=== PATIENT | female | born 1995 | race African-American/Black ===

== ENCOUNTER 2017-02-27 21:47 | Emergency (ER) | payer MEDICAID ==
[~2017-02-27] VITALS: Ht 162.6 cm; Wt 68.0 kg
[2017-02-28 02:58] VITALS: BP 110/60
[2017-02-28 04:53] LABS: CLARITY URINE CLEAR (CLEAR); COLOR URINE YELLOW (YELLOW); GLUCOSE URINE NEGATIVE (NEGATIVE); KETONES URINE NEGATIVE (NEGATIVE); LEUKOCYTE ESTERASE URINE 2+ (NEGATIVE); NITRITE URINE NEGATIVE (NEGATIVE); OCCULT BLOOD URINE NEGATIVE (NEGATIVE); PH URINE 5.5 (4.5-8.0); PROTEIN URINE NEGATIVE (NEGATIVE); SPECIFIC GRAVITY URINE 1.029 (1.005-1.030)
== END 2017-02-28 06:00 | disposition home or self-care (01) ==
LOC: EDSEX 21:47 → ER 02-28 04:01
DX: N39.0 Urinary tract infection, site not specified (principal); F12.90 Cannabis use, unspecified, uncomplicated; Z88.2 Allergy status to sulfonamides; Z88.8 Allergy status to other drugs, medicaments and biological substances
CPT/HCPCS: 81001; 99283